=== PATIENT | female | born 1975 | race Caucasian/White ===

== ENCOUNTER 2022-02-07 20:03 | Inpatient (IN) ==
[2022-02-07] MEDS ORDERED: ONDANSETRON 4 MG/2 ML VIAL IV PRN (20:42)
[2022-02-07] MEDS ORDERED: ACETAMINOPHEN 325 MG TABLET PO PRN (20:42)
[2022-02-07] MEDS: DEXTROSE 5% NACL 0.45% 1,000 ML IV SCH (21:12)
[2022-02-07] MEDS: HYDROmorphone 1 MG/1 ML SYRINGE IV PRN (21:13)
[2022-02-07] MEDS: PIPERACILLIN/TAZOBACTAM 3,375 MG in SODIUM CHLORIDE 0.9% 100 ML IV SCH (21:13)
[2022-02-08] MEDS: PIPERACILLIN/TAZOBACTAM 3,375 MG in SODIUM CHLORIDE 0.9% 100 ML IV SCH ×2 (04:09→15:20)
[2022-02-08] MEDS: HYDROmorphone 1 MG/1 ML SYRINGE IV PRN ×5 (05:18→15:05)
[2022-02-08] MEDS: DEXTROSE 5% NACL 0.45% 1,000 ML IV SCH ×2 (05:19→14:57)
[2022-02-08] MEDS ORDERED: INDOCYANINE GREEN 25 MG VIAL IV ONE (06:54)
[2022-02-08] MEDS ORDERED: PANTOPRAZOLE 40 MG VIAL IV SCH (09:00)
[2022-02-08] MEDS ORDERED: fentaNYL 100 MCG/2 ML VIAL ONE (13:04)
[2022-02-08] MEDS ORDERED: propofoL 200 MG/20 ML VIAL IV ONE (13:04)
[2022-02-08] MEDS ORDERED: ROCURONIUM 50 MG/5 ML VIAL IV ONE (13:04)
[2022-02-08] MEDS ORDERED: MIDAZOLAM 2 MG/2 ML VIAL ONE (13:04)
[2022-02-08] MEDS ORDERED: LIDOCAINE 2% 5 ML VIAL ONE (13:04)
[2022-02-08] MEDS ORDERED: DEXAMETHASONE 4 MG/1 ML VIAL ONE (13:04)
[2022-02-08] MEDS ORDERED: ONDANSETRON 4 MG/2 ML VIAL ONE (13:04)
[2022-02-08] MEDS ORDERED: BUPIVACAINE MPF 0.25% 10 ML VIAL ONE (13:19)
[2022-02-08] MEDS ORDERED: LIDOCAINE 1%/EPI INJ 20 ML VIAL ONE (13:19)
[2022-02-08] MEDS ORDERED: TISSUE ADHESIVE 1 EACH APPLICATOR TOP ONE (13:19)
[2022-02-08] MEDS ORDERED: ePHEDrine 50 MG/ML VIAL ONE (13:26)
[2022-02-08] MEDS ORDERED: ACETAMINOPHEN INJ 1,000 MG/100 ML VIAL IV ONE (13:36)
[2022-02-08] MEDS ORDERED: ONDANSETRON 4 MG/2 ML VIAL IV PRN (14:52)
[2022-02-08 18:17] VITALS: BP 103/60
== END 2022-02-08 18:51 | disposition home or self-care (01) | DRG 419 ==
LOC: EDUNIT# → EDBD → N.ED 20:03 → N.EDINP 20:42 → N.3E 22:33
PROVIDERS: ADMIT Surgery; ATTEND Surgery